=== PATIENT | male | born 1980 | race Two or more races ===

== ENCOUNTER 2018-11-21 21:07 | Emergency (ER) | payer MEDICAID ==
[~2018-11-21] VITALS: Ht 172.7 cm; Wt 79.5 kg
[~2018-11-21 21:07] MED LIST: ALBU18HF INHALATION; AMOX500C2 PO; GUAI5SYR2 PO
[2018-11-21 21:10] VITALS: BP 124/72; PULSE 90; RESP 19; Ht 172.7 cm; Wt 79.5 kg
[2018-11-21] MEDS ORDERED: IBUPROFEN 800 MG TAB PO ONE (22:30)
--- NOTE | 2018-11-21 22:33 | ERD ---
ER Documentation Chief Complaint Chief Complaint RIGHT KNEE INJ XTODAY; PLAYING SOCCOR AND LANDED ON LEG WRONG HPI 38-year-old male with no significant past medical history presents to the emergency department complaining of intermittent right knee pain after injury which occurred just prior to arrival. The patient was playing soccer and running when accidentally slipped and heard a crack in his right knee. He reports 6/10 pain which is worse with walking. He tried no medication for relief of symptoms prior to arrival. He denies any head injury, loss of consciousness, or other symptoms or injuries at this time. ROS All systems reviewed and are negative except as per history of present illness. Medications Home Meds Active Scripts Naproxen* (Naprosyn*) 500 Mg Tablet, 500 MG PO BID PRN for PAIN AND/OR INFLAMMATION, #30 TAB Prov:LI MAHARAJ PA-C 11/21/18 Amoxicillin* (Amoxicillin*) 500 Mg Cap, 500 MG PO TID for 7 Days, #21 CAP 0 Refills Prov:JOAQUÍN ALLISON PA-C 01/21/16 Guaifenesin-Dextromethorphan* (Robitussin* DM) 100MG/10MG/5ML Syrup, 5 ML PO Q6H PRN for COUGH for 6 Days, #120 ML 0 Refills Prov:JOAQUÍN ALLISON PA-C 01/21/16 Albuterol Sulfate* (Ventolin HFA*) 18 Gm Hfa.aer.ad, 2 PUFF INHALATION Q6H for 30 Days, #1 INHALER 0 Refills Prov:JOAQUÍN ALLISON PA-C 01/21/16 Allergies Allergies: Coded Allergies: No Known Allergy (Unverified , 11/21/18) PMhx/Soc Medical and Surgical Hx: pt denies Medical Hx History of Surgery: Yes (HERNIA 1991) Anesthesia Reaction: No Hx Neurological Disorder: No Hx Respiratory Disorders: No Hx Cardiac Disorders: No Hx Psychiatric Problems: No Hx Miscellaneous Medical Probl: No Hx Alcohol Use: Yes (SOCIALLY) Hx Substance Use: Yes (MARIJUANA) Hx Tobacco Use: Yes Smoking Status: Light tobacco smoker FmHx Family History: No diabetes Physical Exam Vitals Physical Exam Const: No acute distress Head: Atraumatic Eyes: Normal Conjunctiva ENT: Normal External Ears, Nose and Mouth. Neck: Full range of motion. No meningismus. Resp: No respiratory distress. Skin: No petechiae or rashes Back: No midline or flank tenderness Ext: There is subjective tenderness palpation over the medial aspect of the right knee. Slightly limited range of motion of the right knee secondary to pain. Negative anterior and posterior drawer test. Patient is neurovascularly intact to the right lower extremity. Neur: Awake and alert Psych: Normal Mood and Affect Results 24 hrs Current Medications Medications Dose Sig/Nina Start Time Status Last (Trade) Ordered Route PRN Stop Time Admin Dose Reason Admin Ibuprofen 800 mg ONCE ONCE 11/21/18 DC 11/21/18 (Motrin) PO 22:30 22:33 11/21/18 22:31 [place] [id number] Radiology Main Line: [phone] DIAGNOSTIC IMAGING REPORT Patient: DEBO GU : 1980 Age: 38 Sex: M MR #: [id number] DOS: 11/21/18 0000 Ordering MD: LI MAHARAJ PA-C Location: [facility] Room/Bed: PROCEDURE: Right knee x-ray CLINICAL INDICATION: Knee pain TECHNIQUE: AP, lateral and oblique views of the right knee were obtained. COMPARISON: None FINDINGS: No acute fracture identified. Alignment and mineralization are normal. There are no significant degenerative changes. Knee joint effusion is noted. Soft tissues are otherwise unremarkable. IMPRESSION: Right knee joint effusion. No acute fracture identified however. RPTAT:HCLE Physician Vern Date Time Electronically viewed and signed by Physician Vern on 11/21/2018 23:48 cE/ CC: LI MAHARAJ PA-C [id number] Procedures/MDM 38-year-old male presents to the emergency department with signs and symptoms most consistent with ligamental or tendon injury of the right knee. X-rays negative for sign of fracture. Patient required knee immobilizer for immobilization of ligamental or tendon injury or occult fracture. He was given crutches with training.Splint Assessment: Neurovascularly intact post splint placement with good fit. Patient's extremity symptoms have stabilized while they have been evaluated in the department and are appropriate for outpatient follow up. No evidence of compartment syndrome, neurologic injury, vascular injury, open joint, open fracture, tendon laceration, or foreign body. I advise for 24 to 48-hour follow-up with orthopedic physician. no evidence of life-threatening pathology at time of discharge. Pt/family in agreement with discharge plan/diagnosis. Pt/family advised to return immediately with any new or worsening symptoms. Follow-up with primary care physician within the next 1-2 days. Departure Diagnosis: Primary Impression: Knee injury Encounter type: initial encounter Laterality: right Qualified Codes: S89.91XA - Unspecified injury of right lower leg, initial encounter Condition: Fair Additional Instructions: Muchas rosalina por [facility] para gonzalez servicio. Esperamos que en gonzalez visita a la isdiro de emergencia gonzalez problema medico haya sido solucionado y que se sienta mucho mejor. Para estar seguros que gonzalez mejoria sigue en proceso, le pedimos el favor de hacer ronnie estrella de seguimiento medico con gonzalez doctor primario en los proximos 2-4 campbell. Lleve con usted estos documentos y las medicinas recetadas. Si oh sintomas empeoran, NO SE ESPERE, por favor regrese a isidro de emergencia INMEDIATAMENTE. En sarah que usted no tenga un mdico de atencin primaria: Llame al mdico o clnica comunitaria de referencia que aparece abajo abigail las horas de consultorio para hacer ronnie estrella para que le vean. CLINICAS: [facility] [phone] [facility] [phone] [address] [facility] [phone] [facility] [phone] [place] [id number] [phone] [facility]. [phone] LI VASQUEZ PA-C Nov 21, 2018 22:33
[2018-11-21] MEDS ORDERED: NAPR-985 PO (23:50)
== END 2018-11-22 00:26 | disposition home or self-care (01) ==
LOC: FTE 21:07
DX: S89.91XA Unspecified injury of right lower leg, initial encounter (principal); F17.210 Nicotine dependence, cigarettes, uncomplicated; W18.40XA Slipping, tripping and stumbling without falling, unspecified, initial encounter; Y92.322 Soccer field as the place of occurrence of the external cause
CPT/HCPCS: 29505; 73562; Z7502; Z7610